=== PATIENT | male | born 1990 | race Hispanic/Latino ===

== ENCOUNTER 2022-09-11 12:46 | Emergency (ER) | payer OTHER ==
[~2022-09-11] VITALS: Ht 167.6 cm; Wt 96.4 kg
[2022-09-11] MEDS ORDERED: ALBU1.25 NEB (13:41)
[2022-09-11] MEDS ORDERED: KETOROLAC TROMETHAMINE 10 MG TAB PO ONE (16:05)
[2022-09-11] MEDS ORDERED: IBUP80TA PO (16:50)
[2022-09-11 17:12] VITALS: BP 144/84
== END 2022-09-11 17:18 | disposition home or self-care (01) ==
LOC: M ED 12:46
DX: S20.211A Contusion of right front wall of thorax, initial encounter (principal); W00.0XXA Fall on same level due to ice and snow, initial encounter; Z79.52 Long term (current) use of systemic steroids; Z79.1 Long term (current) use of non-steroidal anti-inflammatories (NSAID)

== ENCOUNTER 2022-09-19 21:22 | Emergency (ER) | payer OTHER ==
[~2022-09-19] VITALS: Ht 167.6 cm; Wt 98.4 kg
[~2022-09-19 21:22] MED LIST: ALBU1.25 NEB; IBUP80TA PO
[2022-09-19 21:24] VITALS: BP 139/84
[2022-09-20] MEDS ORDERED: LIDOCAINE 1% MDV 20ML VIAL SC ONE (00:50)
[2022-09-20] MEDS ORDERED: NEOSPORIN OINT 0.9 GM PKT TOP ONE (00:55)
== END 2022-09-20 02:16 | disposition home or self-care (01) ==
LOC: M ED 21:22
DX: S61.211A Laceration without foreign body of left index finger without damage to nail, initial encounter (principal); W26.8XXA Contact with other sharp object(s), not elsewhere classified, initial encounter; Z79.52 Long term (current) use of systemic steroids